=== PATIENT | female | born 1990 | race Caucasian/White ===

== ENCOUNTER 2020-10-17 20:11 | Emergency (ER) | payer MEDICAID ==
[2020-10-17 20:30] VITALS: BP 110/69; PULSE 71
[2020-10-17] MEDS ORDERED: Fluorescein 1 MG Ophth Strip EYERT ONE (20:53)
[2020-10-17] MEDS ORDERED: Erythromycin Base 0.5% Ophth Oint 1 GM Tube EYELF ONE (21:14)
[2020-10-17] MEDS ORDERED: Ketorolac 0.5% Ophth Soln 5 ML Bottle EYELF ONE (21:16)
--- NOTE | 2020-10-17 21:21 | EDM.PDOC ---
ED HPI GENERAL MEDICAL PROBLEM - General Chief Complaint: Eye Problems Stated Complaint: eye injury Time Seen by Provider: 10/17/20 20:53 Source of Information: Reports: Patient, RN Notes Reviewed History Limitations: Reports: No Limitations - History of Present Illness INITIAL COMMENTS - FREE TEXT/NARRATIVE: Patient is a 30-year-old female who is brought into the ER by her mother for the evaluation of left eye irritation. Patient notes that she had what she thought to be an eyelash or dog hair in her eye, so she went to try to flush this out, and she thinks she may have scratched her eye at that time. Her eyelids are no edematous, eyes watery, and irritated. She states is not horribly painful however. She is complaining of some slight blurred vision but nothing that is bothersome for her. She did not take any sort of pain medications prior to coming to the ER. Patient denies any other sick-like symptoms, fever/chills, cough/shortness of breath, nausea/vomiting/diarrhea. Left Eye Pain Score (Numeric/FACES): 3 - Related Data Allergies Allergy/AdvReac Type Severity Reaction Status Date / Time Penicillins Allergy Hives Verified 10/17/20 20:30 Home Meds: Home Meds . [No Known Home Meds] 10/17/20 [History] Past Medical History - Past Health History Medical/Surgical History: Denies Medical/Surgical History Social & Family History - Tobacco Use Tobacco Use Status *Q: Current Every Day Tobacco User Years of Tobacco use: 5 Packs/Tins Daily: 0.5 - Caffeine Use Caffeine Use: Reports: None - Recreational Drug Use Recreational Drug Use: No ED ROS GENERAL - Review of Systems Review Of Systems: Comprehensive ROS is negative, except as noted in HPI. ED EXAM GENERAL W FULL EYE - Physical Exam Exam: See Below Exam Limited By: No Limitations General Appearance: Alert, WD/WN, No Apparent Distress Eye Exam: Right Eye: Normal Inspection, Left Eye: Conjunctival Injection, Corneal Abrasion (around 6pm near iris), Periorbital Changes (slight eyelid edema to bilateral L eyelids), Bilateral Eye: EOMI, PERRL Eyelids: Right: Normal Appearance, Left: Edema, Erythema, Lid Everted for Exam Conjunctiva & Sclera: Right: Normal Appearance, Left: Foreign Body (around 6pm near iris), Injected Cornea Exam: Right: Normal Appearance, Left: Corneal Abrasion, Foreign Body (around 6pm near iris), Examined with Flourescein Extraocular Movements: Bilateral: Intact Pupils: Normal Accommodation Pupillary Size: Bilateral: 3 mm Pupillary Reaction: Bilateral: Brisk Respiratory/Chest: No Respiratory Distress, Lungs Clear, Normal Breath Sounds, No Accessory Muscle Use, Chest Non-Tender Cardiovascular: Normal Peripheral Pulses, Regular Rate, Rhythm, No Edema Extremities: Normal Inspection, Normal Capillary Refill Neurological: Alert, Oriented, Normal Cognition, No Motor/Sensory Deficits Psychiatric: Normal Affect, Normal Mood Skin Exam: Warm, Dry, Intact, Normal Color, No Rash Course - Vital Signs Last Recorded V/S: Last Vital Signs Temp 97 F 10/17/20 20:28 Pulse 71 10/17/20 20:28 Resp 16 10/17/20 20:28 BP 110/69 10/17/20 20:28 Pulse Ox 99 10/17/20 20:28 - Orders/Labs/Meds Orders: Active Orders 24 hr Category Date Time Status Ketorolac [Acular 0.5% Ophth Soln] Med 10/17/20 21:16 Once 1 ml EYELF ONETIME ONE Meds: Medications Discontinued Medications Generic Name Dose Route Start Last Admin Trade Name Freq PRN Reason Stop Dose Admin Erythromycin 1 gm 10/17/20 21:14 Erythromycin Base 0.5% Ophth Oint 1 Gm Tube EYELF 10/17/20 21:15 ONETIME ONE Fluorescein Sodium 1 mg 10/17/20 20:53 Fluorescein 1 Mg Ophth Strip EYERT 10/17/20 20:54 ONETIME ONE Ketorolac Tromethamine 1 ml 10/18/20 09:00 Ketorolac 0.5% Ophth Soln 5 Ml Bottle EYELF QID [facility] - Re-Assessments/Exams Free Text/Narrative Re-Assessment/Exam: 10/17/20 21:20 Patient presents to the ER for left eye irritation, she was found to have a corneal abrasion around 6 PM on the left eye, right near the eye wrist. She will be treated with erythromycin ointment, and ketorolac drops and have her follow-up with ophthalmology or optometry tomorrow. Patient verbalized understanding. Departure - Departure Time of Disposition: 21:20 Disposition: Home, Self-Care 01 Condition: Good Clinical Impression: Corneal abrasion, left Qualifiers: Encounter type: initial encounter Qualified Code(s): S05.02XA - Injury of conjunctiva and corneal abrasion without foreign body, left eye, initial encounter - Discharge Information *PRESCRIPTION DRUG MONITORING PROGRAM REVIEWED*: No *COPY OF PRESCRIPTION DRUG MONITORING REPORT IN PATIENT FATOUMATA: No Instructions: Corneal Abrasion, [id number] Referrals: Partha Gonzalez PA-C [Primary Care Provider] - Additional Instructions: You have been evaluated in the ED today for a foreign body sensation in your eye. You were identified to have a corneal abrasion to the left eye. You were given some pain drops for your eye, ketorolac, please instill 2 drops to the affected eye every 6 hours at least for the next 24 hours . You may use this up to 2-3 days if needed. Please use the erythromycin ointment, 1 cm ribbon to the lower affected eyelid margin 4 times daily for the next 3-5 days. Recommend that you follow up with optometry [facility] for a more thorough evaluation and to make sure that everything is healing appropriately. You will have to call around and schedule yourself an appointment with the next available provider if you do not already have a current eye doctor. Please return to the ED if your symptoms should change or worsen. Sepsis Event Note (ED) - Evaluation Sepsis Screening Result: No Definite Risk - Focused Exam Vital Signs: Vital Signs Temp Pulse Resp BP Pulse Ox 10/17/20 20:28 97 F 71 16 110/69 99 - My Orders Last 24 Hours: My Active Orders 10/17/20 21:16 Ketorolac [Acular 0.5% Ophth Soln] 1 ml EYELF ONETIME ONE - Assessment/Plan Last 24 Hours: My Active Orders 10/17/20 21:16 Ketorolac [Acular 0.5% Ophth Soln] 1 ml EYELF ONETIME ONE
[2020-10-18] MEDS ORDERED: Ketorolac 0.5% Ophth Soln 5 ML Bottle EYELF SCH (09:00)
== END 2020-10-17 21:37 | disposition home or self-care (01) ==
LOC: JD.ED 20:11
DX: S05.02XA Injury of conjunctiva and corneal abrasion without foreign body, left eye, initial encounter (principal); Z88.0 Allergy status to penicillin; Z72.0 Tobacco use; X58.XXXA Exposure to other specified factors, initial encounter
CPT/HCPCS: 99283; A9270